=== PATIENT | male | born 1995 | race Caucasian/White ===

== ENCOUNTER 2023-07-04 20:25 | Emergency (ER) | payer BC, MEDICAID ==
[~2023-07-04] VITALS: Ht 182.9 cm; Wt 84.1 kg
[~2023-07-04 20:25] MED LIST: PANT20TA18 PO
[2023-07-04 20:55] VITALS: BP 161/97; PULSE 77; RESP 14; TEMP 98.4; O2SAT 99
--- NOTE | 2023-07-04 23:23 | NUR ---
[facility] PAGED FOR Nawaf SHEPARD.
--- NOTE | 2023-07-05 00:13 | NUR ---
VASC AT BEDSIDE
== END 2023-07-05 00:49 | disposition home or self-care (01) ==
LOC: ER 20:26
DX: M79.605 Pain in left leg (principal); Z79.899 Other long term (current) drug therapy
CPT/HCPCS: 93971; 99284